=== PATIENT | female | born 1965 | race African-American/Black ===

== ENCOUNTER → 2024-07-29 | Outpatient (CLI) | payer OTHER ==
[2024-08-02 11:48] LABS: RENIN LEVEL 0.93 ng/mL/h (0.25-5.82)
== END ==
LOC: M PLALAB 10:53
PROVIDERS: ATTEND Family Medicine
DX: E87.6 Hypokalemia (principal); R07.89 Other chest pain

== ENCOUNTER → 2024-09-06 | Outpatient (CLI) | payer OTHER | LOC: M RAD 14:01 | PROVIDERS: ATTEND Family Medicine | DX: R93.89 Abnormal findings on diagnostic imaging of other specified body structures (principal) ==

== ENCOUNTER 2024-10-09 06:47 | Day surgery (SDC) | payer OTHER ==
[~2024-10-09] VITALS: Ht 154.9 cm; Wt 66.3 kg
[~2024-10-09 06:47] MED LIST: AMLO1TAB24 PO; PANT20TA6 PO; ROSU40TA81 PO; SPIR-10 PO
[2024-10-09] MEDS ORDERED: propofoL 500 MG/50 ML VIAL As Ordered ONE (07:04)
[2024-10-09] MEDS ORDERED: LIDOCAINE 2% 100MG/5ML SDV (FOR ANES.) As Ordered ONE (07:04)
[2024-10-09] MEDS ORDERED: LABETALOL 100MG/20ML VIAL As Ordered ONE (07:39)
[2024-10-09 08:04] VITALS: TEMP 98.2
[2024-10-09 08:38] VITALS: BP 106/66; O2SAT 99
== END 2024-10-09 08:39 | disposition home or self-care (01) ==
LOC: M OPP 06:47
PROVIDERS: ATTEND Internal Medicine Gastroenterology
DX: Z12.11 Encounter for screening for malignant neoplasm of colon (principal); Z12.12 Encounter for screening for malignant neoplasm of rectum; K62.1 Rectal polyp; K21.00 Gastro-esophageal reflux disease with esophagitis, without bleeding; K29.50 Unspecified chronic gastritis without bleeding; K64.0 First degree hemorrhoids; K44.9 Diaphragmatic hernia without obstruction or gangrene; I10 Essential (primary) hypertension; E78.00 Pure hypercholesterolemia, unspecified; Z79.899 Other long term (current) drug therapy
CPT/HCPCS: 43239; 45385; 88305; J1920